=== PATIENT | male | born 1950 | race Caucasian/White ===

== ENCOUNTER 2017-04-27 09:00 | Inpatient (IN) | payer OTHER ==
[~2017-04-27] VITALS: Ht 172.7 cm; Wt 121.7 kg
--- NOTE | ~2017-04-27 | OP ---
PATIENT NAME: KWADWO LANGFORD MEDICAL RECORD: [id number] :46 LOCATION:[id number] ADMISSION DATE:04/30/17 SURGEON: PATEL ALBERTO MD DATE OF OPERATION: 04/30/2017 SURGEON: Patel Alberto MD COURT SECURITY OFFICER: Mckinley Kumar MD and LEIDY Woo OPERATION PERFORMED: Coronary artery bypass graft times 4 (left internal mammary artery to LAD, and reverse saphenous vein graft from aorta to posterior descending artery, and aorta to first obtuse marginal sequenced on to second obtuse marginal). PREOPERATIVE DIAGNOSIS: Coronary artery disease with ischemic cardiomyopathy. POSTOPERATIVE DIAGNOSIS: Coronary artery disease with ischemic cardiomyopathy. ANESTHESIA: General endotracheal anesthesia. ESTIMATED BLOOD LOSS: Total cardiopulmonary bypass with Cell Saver retransfusion, but no bank blood transfusion. COMPLICATIONS: None. SPECIMENS: None. CONDITION: Stable. DISPOSITION: Cardiovascular intensive care unit. OPERATIVE FINDINGS: 1. Transesophageal echocardiography revealed slight anterior dyskinesis, but improved from the previous studies from the [place] and the overall ejection fraction was about 50% with mild aortic insufficiency and some left ventricular hypertrophy. 2. Good quality left internal mammary artery. The LAD was a severely diseased 1.5 mm vessel. The probe would not pass distally to a region of stenosis, but a 1.0 mm probe did pass through to the apex and the internal mammary artery would not reach past this area for more distal anastomosis. After anastomosis, there was good Doppler signal and this was also persisted after reversal of heparin. The anterior wall appeared to have increased contractility after separation from cardiopulmonary bypass. 3. The lateral wall vessels, first obtuse marginal 1.5 mm with severe proximal disease, was a [id number] sequential to the vein graft to the second obtuse marginal which was a 2.0-mm vessel. The more distal posterolateral branch of the circumflex was a small and not amenable for bypass. 4. The posterior descending artery was a 2.0-mm vessel. OPERATIVE INDICATIONS: A 66-year-old male with ischemic cardiomyopathy, significant dyspnea with exertion and multivessel coronary artery disease. OPERATIVE SUMMARY IN DETAIL: The patient was brought to the operative suite. General anesthesia was obtained, the patient was prepped and draped. The greater saphenous vein was harvested in the right leg using bridging incisions. OPERATIVE REPORT [id number] KWADWO LANGFORD The side branches were clipped. The vein was removed. Leg was irrigated later and closed in 2 layers. Venous venotomy incision was made. Subcutaneous tissue divided with electrocautery. Sternum was divided with a saw. The left hemisternum was elevated. The left pleural cavity was entered. Left internal mammary artery and vein were taken down to its pedicle graft. Sternal retractor was placed. Pericardium was opened. Heparin was given. The aorta was cannulated. Dual stage venous cannula was inserted. Retrograde cardioplegic cannula was inserted. The internal mammary was clipped distally and made ready for anastomosis. The patient placed on cardiopulmonary bypass. The antegrade cardioplegic cannula was inserted. The patient was cooled. Crossclamp was placed. Cardioplegia given antegrade and retrograde and this was repeated at 15-minute intervals including down the completed vein grafts. Distal anastomosis was performed in standard technique. Proximal anastomosis was performed in single cross-clamp technique. Aortic root de-aired by steep Trendelenburg position, removing the crossclamp and then deairing through the proximal anastomotic sites and tying these anastomoses restoring the flow and then opening the vein grafts and internal mammary. The patient resumed a spontaneous rhythm. The patient was fully rewarmed. The patient was weaned from cardiopulmonary bypass when stable. The patient was decannulated. The cannula sites were oversewn. Protamine was given. Thorough irrigation was undertaken aggressively and appropriately and hemostasis was assured. A drain was placed in the mediastinum and left pleural cavity. Ventricular pacing wires were placed. Pericardial fat was loosely reapproximated in the midline. Left chest was evacuated and irrigated. The sternum was closed with wires and the patient was stable with the chest closed. Fascia was closed. Subcutaneous tissue was closed. Skin was closed. Dermabond was placed. The needle and sponge count was reported correct. The patient was taken to the ICU in stable condition. TRANSINT:[id number] Voice Confirmation ID: [id number] DOCUMENT ID: [id number] PATEL ALBERTO MD at 1058 CC: [id number] DICTATION DATE: 04/30/171813 FURNITURE ASSEMBLY SUPERVISOR: 05/01/17 0243 ADM IN [place] [id number] [place] [address]
--- NOTE | ~2017-04-27 | TEE ---
PATIENT:KWADWO LANGFORD MEDICAL RECORD: [id number] LOCATION:[place] [id number] AGE OF PATIENT: 66 ADMISSION DATE: 04/30/17 SEX: M REFERRING PHYSICIAN: INTERPRETING PHYSICIAN: HEIDE MOE MD TRANSESOPHAGEAL ECHOCARDIOGRAM Date: [facility] CHARGE Y INDICATIONS: CABG PREMEDICATIONS: PATIENT'S RESPONSE PROCEDURE DOPPLER MEASUREMENTS: LVIT LA PA RA LVOT RVOT Asc. Ao AV Gradient Peak AV Mean AV Area MV Gradient Peak MV Mean MV Area INTERPRETATION: Doppler: 2-D: COLOR FLOW DOPPLER NORMAL SALINE STUDY: MISCELLANOUS: DIAGNOSIS: PLAN: Chemical Processor:1 Dr. Moe Rhia: Chase OTT COMMENTS: Dr. Becker and Dr. Kumar doing surgery DATE OF SERVICE: 04/30/2017 PROCEDURE: Transesophageal echo evaluation of valvular structures during bypass surgery. FINDINGS: 1. Left ventricular chamber size is within normal limits. Left ventricular systolic function is mildly reduced. Overall ejection fraction is 40%. 2. Left atrium, right atrium, and right ventricular chamber sizes are within TRANSESOPHAGEAL ECHOCARDIOGRAM REPORT [id number] KWADWO LANGFORD normal limit. 3. Valvular structures have normal structure and motion. 4. Doppler interrogation only reveals trace mitral regurgitation and trace aortic insufficiency. No other valvular insufficiency or stenosis. 5. No evidence of pericardial effusion or left ventricular thrombus. TRANSINT:[id number] Voice Confirmation ID: [id number] DOCUMENT ID: [id number] at 1056 CC: [id number] DICTATION DATE: 05/01/17 0847 FOOD SERVICE REPRESENTATIVE: 05/01/17 1418 DIS IN 05/05/17 [place] [id number]
[2017-04-27] MEDS ORDERED: COREG6.25 MG PO (09:07)
[2017-04-27] MEDS ORDERED: LISINOPRIL5 MG PO (09:07)
[2017-04-27] MEDS ORDERED: LIPITOR40 MG PO (09:08)
[2017-04-27] MEDS ORDERED: BAYER CHEWABLE81 MG PO (09:09)
[2017-04-27 11:00] LABS: BASOPHILS 0.5 % (0-2); EOSINOPHILS 6.7 % (0-7); HEMATOCRIT 41.5 % (42.0-54.0); HEMOGLOBIN 13.9 g/dL (13.5-17.5); IMMATURE GRANULOCYTES 0.3 % (0-5); LYMPHOCYTES 21.2 % (15-50); MCH 31.2 pg (26.0-34.0); MCHC 33.5 g/dL (31.0-37.0); MCV 93.3 fL (80.0-100.0); MEAN PLATELET VOLUME 9.7 fL (7.4-10.4); MONOCYTES 10.3 % (2-11); PLATELET COUNT 245 10x3/uL (130-400); RBC 4.45 10x6/uL (4.20-6.10); RDW 13.5 % (11.5-14.5); WBC 7.4 10x3/uL (4.8-10.8)
[2017-04-27 11:29] LABS: ALBUMIN 3.8 g/dL (3.4-5.0); ALKALINE PHOSPHATASE 61 U/L (46-116); ALT (SGPT) 44 U/L (10-68); BILIRUBIN - TOTAL 0.48 mg/dL (0.2-1.3); CALC OSMOLALITY 275 mosm/kg (275-300); CALCIUM 8.9 mg/dL (8.5-10.1); CARBON DIOXIDE 28.3 mmol/L (21.0-32.0); CHLORIDE - SERUM 102 mmol/L (98-107); CHOLESTEROL, TOTAL 154 mg/dL (0-200); GLUCOSE 98 mg/dL (74-106); PHOSPHOROUS 4.3 mg/dL (2.5-4.9); POTASSIUM - SERUM 3.9 mmol/L (3.5-5.1); PROTEIN - SERUM 8.4 g/dL (6.4-8.2); SODIUM 138 mmol/L (136-145); T4 THYROXIN - FREE 1.08 ng/dL (0.76-1.46); THYROID STIMULATING HORMONE 1.54 uIU/mL (0.36-3.74); UREA NITROGEN 12 mg/dL (7-18); URIC ACID 5.9 mg/dL (2.6-7.2); eGFR NON AFRICAN AMERICAN 79 mL/min (90-120)
[2017-04-27 11:32] LABS: APTT 34.2 SECONDS (22.8-39.4); INR 1.08 (0.85-1.17); PROTIME 13.6 SECONDS (11.6-15.0)
[2017-04-27 12:03] LABS: APPEARANCE CLEAR (CLEAR); BILIRUBIN NEGATIVE (NEGATIVE); COLOR YELLOW (YELLOW); GLUCOSE NEGATIVE (NEGATIVE); KETONE NEGATIVE (NEGATIVE); NITRITE NEGATIVE (NEGATIVE); PROTEIN NEGATIVE (NEGATIVE); SPECIFIC GRAVITY 1.005 (1.005-1.020); UROBILINOGEN NORMAL (NORMAL)
[2017-04-30] VITALS (23 sets, daily range): BP systolic 91–148; BP diastolic 55–90; BMI 394.2; BMI 40.6
[2017-04-30 14:08] LABS: PLT FUNCT.(P2Y12) PLAVIX 296 PRU (194-418)
[2017-04-30 17:46] LABS: HEMATOCRIT 31.9 % (42.0-54.0); HEMOGLOBIN 10.3 g/dL (13.5-17.5); MCHC 32.3 g/dL (31.0-37.0); MEAN PLATELET VOLUME 9.6 fL (7.4-10.4); RBC 3.43 10x6/uL (4.20-6.10); RDW 13.5 % (11.5-14.5); WBC 17.2 10x3/uL (4.8-10.8)
[2017-04-30 17:53] LABS: CALC OSMOLALITY 298 mosm/kg (275-300); CARBON DIOXIDE 24.3 mmol/L (21.0-32.0); CHLORIDE - SERUM 115 mmol/L (98-107); CREATININE - SERUM 0.8 mg/dL (0.6-1.3); GLUCOSE 138 mg/dL (74-106); POTASSIUM - SERUM 3.8 mmol/L (3.5-5.1); SODIUM 150 mmol/L (136-145); UREA NITROGEN 11 mg/dL (7-18); eGFR NON AFRICAN AMERICAN > 90 mL/min (90-120)
[2017-04-30 18:03] LABS: APTT 46.1 SECONDS (22.8-39.4); INR 1.83 (0.85-1.17); PROTIME 20.6 SECONDS (11.6-15.0)
[2017-05-01] VITALS (54 sets, daily range): BP systolic 93–122; BP diastolic 49–75; Ht 172.7 cm; Wt 121.7 kg
[2017-05-01 02:39] LABS: HEMOGLOBIN 10.7 g/dL (13.5-17.5); MCH 30.4 pg (26.0-34.0); MCHC 32.4 g/dL (31.0-37.0); MCV 93.8 fL (80.0-100.0); MEAN PLATELET VOLUME 9.9 fL (7.4-10.4); RBC 3.52 10x6/uL (4.20-6.10); RDW 14.2 % (11.5-14.5); WBC 14.3 10x3/uL (4.8-10.8)
[2017-05-01 06:11] LABS: HEMATOCRIT 33.3 % (42.0-54.0); HEMOGLOBIN 10.7 g/dL (13.5-17.5); MCH 30.1 pg (26.0-34.0); MCHC 32.1 g/dL (31.0-37.0); MCV 93.8 fL (80.0-100.0); MEAN PLATELET VOLUME 9.7 fL (7.4-10.4); RBC 3.55 10x6/uL (4.20-6.10); RDW 14.2 % (11.5-14.5); WBC 12.1 10x3/uL (4.8-10.8)
[2017-05-01 06:41] LABS: ALBUMIN 2.9 g/dL (3.4-5.0); ALKALINE PHOSPHATASE 26 U/L (46-116); ALT (SGPT) 21 U/L (10-68); BILIRUBIN - TOTAL 0.65 mg/dL (0.2-1.3); CALC OSMOLALITY 293 mosm/kg (275-300); CALCIUM 7.3 mg/dL (8.5-10.1); CARBON DIOXIDE 25.2 mmol/L (21.0-32.0); CHLORIDE - SERUM 113 mmol/L (98-107); CREATININE - SERUM 0.8 mg/dL (0.6-1.3); GLUCOSE 154 mg/dL (74-106); POTASSIUM - SERUM 4.3 mmol/L (3.5-5.1); PROTEIN - SERUM 5.3 g/dL (6.4-8.2); SODIUM 147 mmol/L (136-145); UREA NITROGEN 11 mg/dL (7-18); eGFR NON AFRICAN AMERICAN > 90 mL/min (90-120)
[2017-05-02] VITALS (19 sets, daily range): BP systolic 90–123; BP diastolic 56–84
[2017-05-02 06:08] LABS: HEMATOCRIT 28.2 % (42.0-54.0); MCH 30.1 pg (26.0-34.0); MCHC 31.9 g/dL (31.0-37.0); MCV 94.3 fL (80.0-100.0); MEAN PLATELET VOLUME 9.9 fL (7.4-10.4); RBC 2.99 10x6/uL (4.20-6.10); RDW 14.1 % (11.5-14.5); WBC 12.7 10x3/uL (4.8-10.8)
[2017-05-02 06:18] LABS: PLATELET COUNT 89 10x3/uL (130-400)
[2017-05-02 06:30] LABS: ALBUMIN 2.6 g/dL (3.4-5.0); ALKALINE PHOSPHATASE 28 U/L (46-116); ALT (SGPT) 21 U/L (10-68); BILIRUBIN - TOTAL 0.55 mg/dL (0.2-1.3); CALC OSMOLALITY 278 mosm/kg (275-300); CALCIUM 7.3 mg/dL (8.5-10.1); CARBON DIOXIDE 28.8 mmol/L (21.0-32.0); CHLORIDE - SERUM 105 mmol/L (98-107); CREATININE - SERUM 0.7 mg/dL (0.6-1.3); GLUCOSE 108 mg/dL (74-106); PROTEIN - SERUM 5.4 g/dL (6.4-8.2); SODIUM 140 mmol/L (136-145); UREA NITROGEN 11 mg/dL (7-18); eGFR NON AFRICAN AMERICAN > 90 mL/min (90-120)
[2017-05-02 07:44] LABS: PLATELET ESTIMATE DECREASED
[2017-05-03] VITALS (19 sets, daily range): BP systolic 94–122; BP diastolic 62–76
[2017-05-03 05:30] LABS: HEMATOCRIT 27.7 % (42.0-54.0); MCH 30.4 pg (26.0-34.0); MCHC 32.5 g/dL (31.0-37.0); MCV 93.6 fL (80.0-100.0); MEAN PLATELET VOLUME 10.3 fL (7.4-10.4); RBC 2.96 10x6/uL (4.20-6.10); WBC 10.5 10x3/uL (4.8-10.8)
[2017-05-03 05:34] LABS: ALBUMIN 2.7 g/dL (3.4-5.0); ALKALINE PHOSPHATASE 35 U/L (46-116); BILIRUBIN - TOTAL 0.45 mg/dL (0.2-1.3); CALC OSMOLALITY 281 mosm/kg (275-300); CALCIUM 7.5 mg/dL (8.5-10.1); CARBON DIOXIDE 27.3 mmol/L (21.0-32.0); CHLORIDE - SERUM 106 mmol/L (98-107); GLUCOSE 125 mg/dL (74-106); POTASSIUM - SERUM 4.4 mmol/L (3.5-5.1); PROTEIN - SERUM 5.6 g/dL (6.4-8.2); SODIUM 141 mmol/L (136-145); UREA NITROGEN 13 mg/dL (7-18)
[2017-05-03 05:38] LABS: ALT (SGPT) 30 U/L (10-68); CREATININE - SERUM 0.9 mg/dL (0.6-1.3); eGFR NON AFRICAN AMERICAN 89 mL/min (90-120)
[2017-05-04] VITALS (21 sets, daily range): BP systolic 100–148; BP diastolic 58–97
[2017-05-04 05:13] LABS: HEMATOCRIT 27.7 % (42.0-54.0); HEMOGLOBIN 8.9 g/dL (13.5-17.5); MCH 30.5 pg (26.0-34.0); MCHC 32.1 g/dL (31.0-37.0); MCV 94.9 fL (80.0-100.0); MEAN PLATELET VOLUME 10.4 fL (7.4-10.4); RBC 2.92 10x6/uL (4.20-6.10); RDW 14.3 % (11.5-14.5); WBC 8.6 10x3/uL (4.8-10.8)
[2017-05-04 05:45] LABS: ALBUMIN 2.6 g/dL (3.4-5.0); ALKALINE PHOSPHATASE 36 U/L (46-116); ALT (SGPT) 35 U/L (10-68); CALC OSMOLALITY 286 mosm/kg (275-300); CARBON DIOXIDE 27.7 mmol/L (21.0-32.0); CHLORIDE - SERUM 105 mmol/L (98-107); CREATININE - SERUM 0.8 mg/dL (0.6-1.3); GLUCOSE 117 mg/dL (74-106); PROTEIN - SERUM 6.3 g/dL (6.4-8.2); SODIUM 143 mmol/L (136-145); UREA NITROGEN 15 mg/dL (7-18); eGFR NON AFRICAN AMERICAN > 90 mL/min (90-120)
[2017-05-04 05:48] LABS: POTASSIUM - SERUM 3.7 mmol/L (3.5-5.1)
[2017-05-05] VITALS (10 sets, daily range): BP systolic 101–130; BP diastolic 66–82
[2017-05-05 05:58] LABS: HEMATOCRIT 27.1 % (42.0-54.0); HEMOGLOBIN 8.7 g/dL (13.5-17.5); MCH 30.3 pg (26.0-34.0); MCHC 32.1 g/dL (31.0-37.0); MCV 94.4 fL (80.0-100.0); MEAN PLATELET VOLUME 9.2 fL (7.4-10.4); RBC 2.87 10x6/uL (4.20-6.10); RDW 14.1 % (11.5-14.5); WBC 8.3 10x3/uL (4.8-10.8)
[2017-05-05 06:15] LABS: ALBUMIN 2.3 g/dL (3.4-5.0); ALKALINE PHOSPHATASE 37 U/L (46-116); CALC OSMOLALITY 282 mosm/kg (275-300); CALCIUM 7.9 mg/dL (8.5-10.1); CARBON DIOXIDE 29.8 mmol/L (21.0-32.0); CHLORIDE - SERUM 105 mmol/L (98-107); CREATININE - SERUM 0.9 mg/dL (0.6-1.3); GLUCOSE 112 mg/dL (74-106); POTASSIUM - SERUM 3.6 mmol/L (3.5-5.1); PROTEIN - SERUM 6.2 g/dL (6.4-8.2); SODIUM 141 mmol/L (136-145); UREA NITROGEN 16 mg/dL (7-18); eGFR NON AFRICAN AMERICAN 89 mL/min (90-120)
[2017-05-05 06:17] LABS: ALT (SGPT) 54 U/L (10-68)
[2017-05-05] MEDS ORDERED: HEMOCYTE PLUS C1 CAP PO (12:03)
[2017-05-05] MEDS ORDERED: LOPRESSOR25 MG PO (12:06)
[2017-05-05] MEDS ORDERED: HYDROCODONE-APA1 TAB PO (12:07)
[2017-05-05] MEDS ORDERED: LASIX40 MG PO (12:08)
[2017-05-05] MEDS ORDERED: K-DUR20 MEQ PO (12:10)
== END 2017-05-05 13:21 | disposition home or self-care (01) | DRG 236 ==
LOC: D.SDCHOLD 10:00 → D.CVICU 04-30 05:00 → D.SDCHOLD 04-30 07:30 → D.CVICU 04-30 17:56
PROVIDERS: Thoracic Surgery (Cardiothoracic Vascular Surgery)
PROC: 0212093 Bypass Coronary Artery, Three Arteries from Coronary Artery with Autologous Venous Tissue, Open Approach (ICD-10-PCS; 2017-04-30)
PROC: 06BP0ZZ Excision of Right Saphenous Vein, Open Approach (ICD-10-PCS; 2017-04-30)
PROC: 5A1221Z Performance of Cardiac Output, Continuous (ICD-10-PCS; 2017-04-30)
PROC: B245ZZ4 Ultrasonography of Left Heart, Transesophageal (ICD-10-PCS; 2017-04-30)
PROC: 02100A9 Bypass Coronary Artery, One Artery from Left Internal Mammary with Autologous Arterial Tissue, Open Approach (ICD-10-PCS; principal; 2017-04-30 07:30)
DX: I25.10 Atherosclerotic heart disease of native coronary artery without angina pectoris (principal)

== ENCOUNTER → 2017-05-09 09:13 | Outpatient (CLI) | payer OTHER ==
[2017-05-01 09:44] VITALS: BMI 40.6
[~2017-05-09 09:13] MED LIST: BAYER CHEWABLE81 MG PO; COREG6.25 MG PO; HEMOCYTE PLUS C1 CAP PO; HYDROCODONE-APA1 TAB PO; K-DUR20 MEQ PO; LASIX40 MG PO; LIPITOR40 MG PO; LISINOPRIL5 MG PO; LOPRESSOR25 MG PO
[2017-05-09 10:19] LABS: HEMATOCRIT 31.8 % (42.0-54.0); HEMOGLOBIN 10.2 g/dL (13.5-17.5); MCH 30.5 pg (26.0-34.0); MCHC 32.1 g/dL (31.0-37.0); MCV 95.2 fL (80.0-100.0); MEAN PLATELET VOLUME 9.2 fL (7.4-10.4); RBC 3.34 10x6/uL (4.20-6.10); RDW 13.8 % (11.5-14.5); WBC 10.4 10x3/uL (4.8-10.8)
[2017-05-09 10:23] LABS: ALBUMIN 2.8 g/dL (3.4-5.0); ALKALINE PHOSPHATASE 67 U/L (46-116); ALT (SGPT) 79 U/L (10-68); BILIRUBIN - TOTAL 0.61 mg/dL (0.2-1.3); CALC OSMOLALITY 270 mosm/kg (275-300); CALCIUM 8.5 mg/dL (8.5-10.1); CHLORIDE - SERUM 100 mmol/L (98-107); GLUCOSE 119 mg/dL (74-106); POTASSIUM - SERUM 4.5 mmol/L (3.5-5.1); SODIUM 135 mmol/L (136-145); UREA NITROGEN 13 mg/dL (7-18); eGFR NON AFRICAN AMERICAN 79 mL/min (90-120)
== END | disposition home or self-care (01) ==
LOC: D.LAB 09:13
PROVIDERS: Thoracic Surgery (Cardiothoracic Vascular Surgery)
DX: I25.10 Atherosclerotic heart disease of native coronary artery without angina pectoris (principal); J90 Pleural effusion, not elsewhere classified

== ENCOUNTER 2018-03-02 23:59 | Emergency (ER) | payer OTHER ==
[~2018-03-02] VITALS: Ht 172.7 cm; Wt 118.2 kg
[2018-03-03 00:03] VITALS: Ht 172.7 cm; Wt 118.2 kg
[2018-03-03] MEDS ORDERED: PLAVIX75 MG PO (00:08)
[2018-03-03] MEDS ORDERED: LIPITOR80 MG PO (00:08)
[2018-03-03] MEDS ORDERED: LISINOPRIL5 MG PO (00:09)
[2018-03-03] MEDS ORDERED: COREG12.5 MG PO (00:09)
[2018-03-03 00:58] LABS: BASOPHILS 0.2 % (0-2); EOSINOPHILS 3.2 % (0-7); HEMATOCRIT 37.8 % (42.0-54.0); HEMOGLOBIN 12.7 g/dL (13.5-17.5); IMMATURE GRANULOCYTES 0.2 % (0-5); LYMPHOCYTES 20.8 % (15-50); MCHC 33.6 g/dL (31.0-37.0); MCV 92.2 fL (80.0-100.0); MEAN PLATELET VOLUME 9.5 fL (7.4-10.4); MONOCYTES 10.2 % (2-11); NEUTROPHILS 65.4 % (40-80); RDW 12.6 % (11.5-14.5); WBC 8.2 10x3/uL (4.8-10.8)
[2018-03-03 01:04] LABS: PLATELET COUNT 211 10x3/uL (130-400)
[2018-03-03 01:05] LABS: ALBUMIN 3.6 g/dL (3.4-5.0); ALKALINE PHOSPHATASE 48 U/L (46-116); ALT (SGPT) 34 U/L (10-68); CALC OSMOLALITY 282 mosm/kg (275-300); CALCIUM 8.4 mg/dL (8.5-10.1); CARBON DIOXIDE 24.6 mmol/L (21.0-32.0); CHLORIDE - SERUM 106 mmol/L (98-107); GLUCOSE 102 mg/dL (74-106); POTASSIUM - SERUM 3.8 mmol/L (3.5-5.1); PROTEIN - SERUM 7.3 g/dL (6.4-8.2); SODIUM 141 mmol/L (136-145); UREA NITROGEN 19 mg/dL (7-18); eGFR NON AFRICAN AMERICAN 79 mL/min (90-120)
[2018-03-03 01:13] LABS: LIPASE 152 U/L (73-393); PRO BNP 443 pg/mL (0-125); THYROID STIMULATING HORMONE 2.29 uIU/mL (0.36-3.74); TROPONIN-I < 0.017 ng/mL (0.000-0.060)
[2018-03-03 01:29] LABS: APPEARANCE CLEAR (CLEAR); BILIRUBIN NEGATIVE (NEGATIVE); COLOR YELLOW (YELLOW); GLUCOSE NEGATIVE (NEGATIVE); KETONE NEGATIVE (NEGATIVE); NITRITE NEGATIVE (NEGATIVE); PROTEIN NEGATIVE (NEGATIVE); SPECIFIC GRAVITY 1.005 (1.005-1.020); UROBILINOGEN NORMAL (NORMAL)
[2018-03-03 02:06] VITALS: BP 135/74
== END 2018-03-03 02:06 | disposition home or self-care (01) ==
LOC: D.ER 23:59
PROVIDERS: Family Medicine
DX: R55 Syncope and collapse (principal); I10 Essential (primary) hypertension; I25.10 Atherosclerotic heart disease of native coronary artery without angina pectoris